=== PATIENT | female | born 1940 | race African-American/Black ===

== ENCOUNTER 2018-05-01 05:44 | Day surgery (SDC) | payer MEDICARE, MEDICAID ==
--- NOTE | 2018-04-26 15:14 | Pre-Procedure Note/Attestation ---
Pre-Procedure Note/Attestation Complete Prior to Procedure Planned Procedure: right Procedure Narrative: phaco with IOL Indications for Procedure Pre-Operative Diagnosis: cataract Attestation I attest that I discussed the nature of the procedure; its benefits; risks and complications; and alternatives (and the risks and benefits of such alternatives ), prior to the procedure, with the patient (or the patient's legal business services representative). I attest that, if there was a reasonable possibility of needing a blood transfusion, the patient (or the patient's legal business services representative) was given the [facility] standardized written summary, pursuant to the [place] Blood Safety Act ([place] Health and Safety Code # 1645, as amended). I attest that I re-evaluated the patient just prior to the surgery and that there has been no change in the patient's H&P, except as documented below: Rajeev Hernandez MD Apr 26, 2018 15:14
--- NOTE | 2018-04-26 15:18 | Opthalmology H&P ---
Ophthalmology H&P H&P Chief Complaint: decreased vision in right eye HPI Vision Affects Ability to: read, focus/use eyes together, manage personal affairs HPI Narrative blurry vision Exam Visual Acuity: OD: 20/80 OS: 20/125 Tension: OD: 13 OS: 15 Eye Exam: normal OU: external exam, palpebral fissure-width, marginal reflex distance, levator function, corneas, anterior chambers; findings: lens - OD; ns OS: ns, fundus exam - HTN retinopathy OU Assessment/Plan Diagnosis: (1) Nuclear age-related cataract, right eye Treatment Plan: cataract extraction w/ lens implant Goals of Treatment: improvement of vision, enhance quality of life Attestation Attestation The risks and benefits of the surgery as well as alternative procedures were explained to the patient in detail. Rajeev Hernandez MD Apr 26, 2018 15:18
[~2018-05-01] VITALS: Ht 162.6 cm; Wt 86.2 kg
[2018-05-01] VITALS (7 sets, daily range): BP systolic 147–187; BP diastolic 72–112
[2018-05-01] MEDS: Phenylephrine 10% Opth Soln 5ml RIGHT EYE SCH ×3 (06:50→07:12)
[2018-05-01] MEDS: Cyclopentolate 1% Opth Sol 2ml RIGHT EYE SCH ×3 (06:50→07:12)
[2018-05-01] MEDS: Tropicamide 1% Opth 15ml Soln RIGHT EYE SCH ×3 (06:50→07:12)
[2018-05-01] MEDS: Tobramycin Op Soln 0.3% 5ml RIGHT EYE SCH ×3 (06:52→07:12)
[2018-05-01] MEDS: Diclofenac Sod 0.1% Op Soln RIGHT EYE SCH ×2 (06:52→07:05)
[2018-05-01] MEDS ORDERED: Proparacaine 0.5% Opth Soln 15ml RIGHT EYE ONE (07:00)
[2018-05-01] MEDS ORDERED: Akten 3.5% 1ml Btl RIGHT EYE ONE (07:00)
[2018-05-01] MEDS ORDERED: Tetracaine 0.5% Opth 4ml Soln RIGHT EYE ONE (07:00)
[2018-05-01] MEDS ORDERED: Lidocaine 4% Amp ONE (07:09)
[2018-05-01] MEDS ORDERED: EPINEPHrine 1mg/1ml Amp ONE (07:09)
[2018-05-01] MEDS ORDERED: Sodium Hyaluronate 14 mg/ml 0.85ml ONE (07:10)
[2018-05-01] MEDS ORDERED: BSS 500ml btl ONE (07:10)
[2018-05-01] MEDS ORDERED: BSS 15ml BTL ONE (07:10)
[2018-05-01] MEDS ORDERED: Povidone-Iodine 5% opth solution ONE (07:11)
[2018-05-01] MEDS ORDERED: Lidocaine 2% MPF 5ml Vial INJ ONE (07:11)
[2018-05-01] MEDS ORDERED: POTASSIUM CHLO10 ME3 ORAL (07:11)
[2018-05-01] MEDS ORDERED: Bupivacaine 0.75% 30ml vial INJ ONE (07:12)
[2018-05-01] MEDS ORDERED: ATORVASTATIN CA20 MG ORAL (07:15)
[2018-05-01] MEDS ORDERED: ASPIR 8181 MG ORAL (07:15)
[2018-05-01] MEDS ORDERED: LEVOCETIRIZINE D5 MG ORAL (07:16)
[2018-05-01] MEDS ORDERED: METOPROLOL TART50 M1 ORAL (07:16)
[2018-05-01] MEDS ORDERED: MYBETRIC (07:19)
[2018-05-01] MEDS ORDERED: MYBETRIC PO (07:19)
[2018-05-01] MEDS ORDERED: LR 1000ml 1,000 ML IVLG SCH (08:09)
[2018-05-01] MEDS ORDERED: oxyCODONE HCL/Acetaminophen 5/325mg ORAL PRN (08:15)
[2018-05-01] MEDS ORDERED: LORazepam Inj 2mg/ml 1ml IV PRN (08:15)
[2018-05-01] MEDS ORDERED: fentaNYL 100 mcg/2 mL IV PRN (08:15)
[2018-05-01] MEDS ORDERED: Norco 5mg/325mg tab ORAL PRN (08:15)
[2018-05-01] MEDS ORDERED: Hydromorphone 0.5mg/0.5ml inj IVP PRN (08:15)
[2018-05-01] MEDS ORDERED: Ketorolac 30mg Inj IV PRN ×2 (08:15)
[2018-05-01] MEDS ORDERED: Atropine Sulfate 0.4mg/ml inj IVP PRN (08:15)
[2018-05-01] MEDS ORDERED: Metoclopramide 10mg/2ml Inj IVP PRN (08:15)
[2018-05-01] MEDS ORDERED: Meperidine 50mg/ml Inj(FOR RIGORS ONLY) IVP PRN (08:15)
[2018-05-01] MEDS ORDERED: DiphenhydrAMINE 50mg/ml Inj IVP PRN (08:15)
[2018-05-01] MEDS ORDERED: Midazolam 2mg/2ml Inj IVP PRN (08:15)
[2018-05-01] MEDS ORDERED: HYDROcodone/Acetamin 7.5/325 tab ORAL PRN (08:15)
--- NOTE | 2018-05-01 08:23 | Anethesia Preoperative Eval ---
Anesthesia Pre-op PMH/ROS General Date of Evaluation: May 01, 2018 Time of Evaluation: 08:42 Anesthesiologist: Lidia ASA Score: ASA 3 Mallampati Score Class I : Soft palate, uvula, fauces, pillars visible Class II: Soft palate, uvula, fauces visible Class III: Soft palate, base of uvula visible Class IV: Only hard plate visible Mallampati Classification: Class III Surgeon: Mary Diagnosis: Cataract OD Surgical Procedure: Cat Ext IOL OD Anesthesia History: none Family History: no anesthesia problems Allergies: Coded Allergies: No Known Allergies (Unverified , 04/26/18) Medications: see eMAR Patient NPO?: Yes Past Medical History Cardiovascular: Reports: HTN, CAD - Stent, other - HL Gastrointestinal/Genitourinary: Reports: GERD HEENT: Reports: cataract (L), cataract (R), glaucoma Musculoskeletal/Integumentary: Reports: other - Back Pain Other: obesity - BMI 34 PSxH Narrative: Cardiac Stent Anesthesia Pre-op Phys. Exam Physician Exam Last Vital Signs Date Time Temp Pulse Resp B/P (MAP) Pulse Ox O2 Delivery O2 Flow Rate FiO2 05/01/18 07:06 Room Air 05/01/18 06:47 98.8 58 18 164/72 99 Constitutional: NAD Neurologic: CN 2-12 intact Cardiovascular: RRR Respiratory: CTA Gastrointestinal: S/NT/ND Airway Exam Mallampati Score: Class III MO: limited ROM: limited Teeth: missing Anesthesia Pre-op A/P Risk Assessment & Plan Assessment: ASA 3 Plan: GA Status Change Before Surgery: No Norman Murillo MD May 01, 2018 08:23
--- NOTE | 2018-05-01 08:58 | Immediate Post-Op Evaluation ---
Immediate Post-Op Evalulation Immediate Post-Op Evalulation Procedure: Cat Ext IOL OD Date of Evaluation: May 01, 2018 Time of Evaluation: 09:49 IV Fluids: 400 LR Blood Products: 0 Estimated Blood Loss: 1 Urinary Output: 0 Blood Pressure Systolic: 171 Blood Pressure Diastolic: 107 Pulse Rate: 56 Respiratory Rate: 16 O2 Sat by Pulse Oximetry: 94 Temperature (Fahrenheit): 98.5 Pain Score (1-10): 1 Nausea: No Vomiting: No Complications 0 Patient Status: awake, reacts, patent, none Hydration Status: adequate Norman Murillo MD May 01, 2018 08:58
--- NOTE | 2018-05-01 08:59 | 48 Hour Post Anesthesia Eval ---
Post Anesthesia Evaluation Procedure: Cat Ext IOL OD Date of Evaluation: May 01, 2018 Time of Evaluation: 11:52 Blood Pressure Systolic: 165 0: 89 Pulse Rate: 56 Respiratory Rate: 18 Temperature (Fahrenheit): 98.6 O2 Sat by Pulse Oximetry: 93 Airway: patent Nausea: No Vomiting: No Pain Intensity: 1 Hydration Status: adequate Cardiopulmonary Status: Stable Mental Status/LOC: patient returned to baseline Follow-up Care/Observations: 0 Post-Anesthesia Complications: 0 Follow-up care needed: ready to discharge Norman Murillo MD May 01, 2018 08:59
[2018-05-01] MEDS ORDERED: Propofol 200mg/20ml IV ONE (09:00)
[2018-05-01] MEDS ORDERED: Lidocaine 1% MPF 10mg/ml 5ml ONE (09:00)
[2018-05-01] MEDS ORDERED: Tetracaine 0.5% Opth 4ml Soln ONE (09:00)
[2018-05-01] MEDS ORDERED: Pred Forte 1% Opth Susp 1ml ONE (09:00)
[2018-05-01] MEDS ORDERED: LR 1000ml ONE (09:00)
[2018-05-01] MEDS ORDERED: Dexamethasone 4mg/ml vial ONE (09:00)
[2018-05-01] MEDS ORDERED: Pilocarpine 2% Opth 15ml Soln ONE (09:00)
[2018-05-01] MEDS ORDERED: Maxitrol Opth Oint 3.5gm ONE (09:00)
[2018-05-01] MEDS ORDERED: vit D PO (13:24)
[2018-05-01] MEDS ORDERED: OMEPRAZOLE20 M2 ORAL (13:25)
[2018-05-01] MEDS ORDERED: ANORO ELLIPTA1 EACH INH (13:27)
[2018-05-01] MEDS ORDERED: PROLENSA1.6 ML OP (13:28)
[2018-05-01] MEDS ORDERED: LOTEMAX3.5 GM OP (13:29)
[2018-05-01] MEDS ORDERED: VENTOLIN HFA18 GM INH (13:30)
--- NOTE | 2018-05-02 20:09 | Brief Operative Note ---
Immediate Post Operative Note Operative Note Chief Complaint: blurry vision Pre-op Diagnosis: cataract, OD Procedure: phaco with IOL Post-op Diagnosis: pseudophakia Post-op Diagnosis: same as pre-op Findings: consistent w/pre-op dx studies Surgeon: Mary Anesthesiologist: Laner Anesthesia: MAC Specimen: none Complications: none Condition: stable Fluids: LR Estimated Blood Loss: none Drains: none Implant(s) used?: Yes Rajeev Hernandez MD May 02, 2018 20:09
--- NOTE | 2018-05-02 20:10 | Operative Note - PDOC ---
Operative Note Operative Note Date of Operation/Procedure: May 01, 2018 Chief Complaint: blurry vision Pre-op Diagnosis: cataract, OD Procedure: phaco with IOL Post-op Diagnosis: pseudophakia Post-op Diagnosis: same as pre-op Operative Findings: consistent w/pre-op dx studies Surgeon: Mary Anesthesiologist: Lanre Anesthesia: MAC Specimen: none Complications: none Condition: stable Fluids: LR Estimated Blood Loss: none Drains: none Implant(s) used?: Yes Indications for Procedure cataract Description of Procedure This patient has been complaining visually significant cataract in the affected eye with the best corrected visual acuity under moderate glare conditions worse. The patient complains of difficulties with glare in performing activities of daily living and wants to manage personal affairs with comfort and accuracy and see well enough to move with safety at home and outdoors. ~~~ The risks, benefits and alternatives of the procedure were discussed with the patient in the office prior to scheduling surgery. All questions from the patient were answered after the surgical procedure was explained in detail. The risks of the procedure as explained to the patient include, but are not limited to, pain, infection, bleeding, loss of vision, retinal detachment, need for further surgery, loss of lens nucleus, double vision, etc. Alternative procedures were discussed which include, to do nothing or seek a second opinion. Informed consent for this procedure was obtained from the patient. The patient was referred to a primary care physician for a cardiopulmonary clearance prior to surgery, after proper evaluation was done patient was properly scheduled for outpatient surgery. The patient was brought to the operating room where the anesthesiologist established I.V. lines and cardiac monitoring leads. Mild intravenous sedation was administered. Using a solution containing 0.75% Marcaine and 2% lidocaine with Wyd[place], a peribulbar block was administered to the eye. ~The patient was then prepared with a 5% solution of povidone-iodine to the conjunctival fornix and lashes, and a 10% solution of povidone-iodine to the lids and periorbital skin. The patient was then draped in the usual sterile fashion. A lid speculum was then placed in the operative eye. A keratome blade was then used to create a biplanar incision into the anterior chamber. Viscoelastics was then instilled into the anterior chamber. A capsulorrhexis was then fashioned with an utrata forceps. BSS and a cannula were then used to hydrodissect and hydro delineate the lens. Paracentesis incision was made at 3 o'clock with sharp blade. The phacoemulsification unit, after being properly adjusted ~and tested, was then used to emulsify the nucleus followed by aspirated of residual cortical material with the irrigation and aspiration unit. Healon was then instilled into the anterior chamber. The corneal wound was then enlarged to the size of the optic with the smooth keratome blade. The intraocular lens was then inspected for right ~ power and size and thought to be satisfactory. Then the lens was gently placed in the capsular bag. Positioning within the capsular bag was confirmed by direct visualization. Optic centration was accomplished with a Sinskey hook. Viscoelastics ~was removed from the anterior chamber using the irrigation and aspiration unit. The corneal wound was then tested for leaks and none were found. The lid speculum were then removed. Sponge and needle counts were correct. An eye patch and shield were placed over the operative eye. The patient was taken to the recovery room in stable condition. There were no complications. The patient tolerated the procedure well. The patient was then transferred to the ambulatory surgery unit in stable and satisfactory condition , was given detailed written instructions and asked to follow up ~in the office the next day. Rajeev Hernandez MD May 02, 2018 20:10
== END 2018-05-01 11:15 | disposition home or self-care (01) ==
LOC: SUR 05:44
DX: H25.11 Age-related nuclear cataract, right eye (principal); I10 Essential (primary) hypertension; E78.00 Pure hypercholesterolemia, unspecified; J44.9 Chronic obstructive pulmonary disease, unspecified; I11.9 Hypertensive heart disease without heart failure; K21.9 Gastro-esophageal reflux disease without esophagitis; Z95.5 Presence of coronary angioplasty implant and graft
CPT/HCPCS: 66984; J0171; J1100; J1885; J2704; J3370; V2632; 94003; 94150

== ENCOUNTER 2019-02-19 07:11 | Day surgery (SDC) | payer MEDICARE, MEDICAID ==
--- NOTE | 2019-02-16 13:00 | Opthalmology H&P ---
Ophthalmology H&P H&P Chief Complaint: decreased vision in left eye HPI Vision Affects Ability to: read, manage personal affairs HPI Narrative Blurry vision Exam Visual Acuity: OD 20/30 OS 20/50 Tension: OD 17 OS 16 Eye Exam: normal OU: external exam, palpebral fissure-width, marginal reflex distance, levator function, corneas, anterior chambers, lens - Cataract NS OS, Pseudo OD , fundus exam; findings: lens - Cataract NS OS,Pseudo OD Assessment/Plan Treatment Plan: cataract extraction w/ lens implant Goals of Treatment: improvement of vision, enhance quality of life Attestation Attestation The risks and benefits of the surgery as well as alternative procedures were explained to the patient in detail. Rajeev Hernandez MD Feb 16, 2019 13:00
--- NOTE | 2019-02-16 13:01 | Pre-Procedure Note/Attestation ---
Pre-Procedure Note/Attestation Complete Prior to Procedure Planned Procedure: left Procedure Narrative: Cataract extraction with intraocular lens implant left eye Indications for Procedure Pre-Operative Diagnosis: Nuclear sclerotic cataract left eye Attestation I attest that I discussed the nature of the procedure; its benefits; risks and complications; and alternatives (and the risks and benefits of such alternatives ), prior to the procedure, with the patient (or the patient's legal apprenticeship training representative). I attest that, if there was a reasonable possibility of needing a blood transfusion, the patient (or the patient's legal apprenticeship training representative) was given the [facility] standardized written summary, pursuant to the [place] Blood Safety Act ([place] Health and Safety Code # 1645, as amended). I attest that I re-evaluated the patient just prior to the surgery and that there has been no change in the patient's H&P, except as documented below: Rajeev Hernandez MD Feb 16, 2019 13:01
[~2019-02-19] VITALS: Ht 162.6 cm; Wt 83.9 kg
[2019-02-19] VITALS (8 sets, daily range): BP systolic 131–148; BP diastolic 72–100
[~2019-02-19 07:11] MED LIST: ANORO ELLIPTA1 EACH INH; ASPIR 8181 MG ORAL; ATORVASTATIN CA20 MG ORAL; Akten 3.5% 1ml Btl LEFT EYE ONE; Diclofenac Sod 0.1% Op Soln LEFT EYE SCH; LEVOCETIRIZINE D5 MG ORAL; LOTEMAX3.5 GM OP; METOPROLOL TART50 M1 ORAL; MYBETRIC; MYBETRIC PO; OMEPRAZOLE20 M2 ORAL; POTASSIUM CHLO10 ME3 ORAL; PROLENSA1.6 ML OP; Proparacaine 0.5% Opth Soln 15ml LEFT EYE ONE; Tetracaine 0.5% Opth 4ml Soln LEFT EYE ONE; Tobramycin Op Soln 0.3% 5ml LEFT EYE SCH; VENTOLIN HFA18 GM INH; vit D PO
[2019-02-19] MEDS: Cyclopentolate 1% Opth Sol 2ml LEFT EYE SCH ×3 (10:07→10:40)
[2019-02-19] MEDS: Tropicamide 1% Opth 15ml Soln LEFT EYE SCH ×3 (10:08→10:40)
[2019-02-19] MEDS: Phenylephrine 10% Opth Soln 5ml LEFT EYE SCH ×3 (10:10→10:40)
[2019-02-19] MEDS: Tobramycin Op Soln 0.3% 5ml LEFT EYE SCH ×3 (10:10→10:40)
[2019-02-19] MEDS ORDERED: BSS 500ml btl ONE (10:37)
[2019-02-19] MEDS ORDERED: Povidone-Iodine 5% opth solution ONE (10:37)
[2019-02-19] MEDS ORDERED: Polysporin Opth Oint 3.5gm ONE (10:37)
[2019-02-19] MEDS ORDERED: EPINEPHrine 1mg/1ml Amp ONE (10:37)
[2019-02-19] MEDS ORDERED: BSS 15ml BTL ONE (10:37)
[2019-02-19] MEDS ORDERED: Sodium Hyaluronate 14 mg/ml 0.85ml ONE (10:37)
--- NOTE | 2019-02-19 10:48 | Anethesia Preoperative Eval ---
Anesthesia Pre-op PMH/ROS General Date of Evaluation: Feb 19, 2019 Time of Evaluation: 11:09 Anesthesiologist: Lidia ASA Score: ASA 3 Mallampati Score Class I : Soft palate, uvula, fauces, pillars visible Class II: Soft palate, uvula, fauces visible Class III: Soft palate, base of uvula visible Class IV: Only hard plate visible Mallampati Classification: Class III Surgeon: Mary Diagnosis: Cataract OS Surgical Procedure: Cat Ext IOL OS Anesthesia History: none Family History: no anesthesia problems Allergies: Coded Allergies: QUININE (Verified Allergy, Mild, 02/19/19) ringing of ears Medications: see eMAR Patient NPO?: Yes Past Medical History Cardiovascular: Reports: HTN, CAD - Stent Gastrointestinal/Genitourinary: Reports: GERD HEENT: Reports: cataract (L), cataract (R), glaucoma Musculoskeletal/Integumentary: Reports: OA PSxH Narrative: MADY Anesthesia Pre-op Phys. Exam Physician Exam Last Vital Signs Date Time Temp Pulse Resp B/P (MAP) Pulse Ox O2 Delivery O2 Flow Rate FiO2 02/19/19 10:11 Room Air 02/19/19 10:10 98.2 70 20 131/85 95 4 Constitutional: NAD Neurologic: CN 2-12 intact Cardiovascular: RRR Respiratory: CTA Gastrointestinal: S/NT/ND Airway Exam Mallampati Score: Class III MO: limited ROM: limited Teeth: missing, intact Anesthesia Pre-op A/P Risk Assessment & Plan Assessment: ASA 3 Plan: TIVA Status Change Before Surgery: No Norman Murillo MD Feb 19, 2019 10:48
--- NOTE | 2019-02-19 10:49 | 48 Hour Post Anesthesia Eval ---
Post Anesthesia Evaluation Procedure: Cat Ext IOL OS Date of Evaluation: Feb 19, 2019 Time of Evaluation: 17:51 Blood Pressure Systolic: 147 0: 87 Pulse Rate: 76 Respiratory Rate: 18 Temperature (Fahrenheit): 98 O2 Sat by Pulse Oximetry: 99 Airway: patent Nausea: No Vomiting: No Pain Intensity: 1 Hydration Status: adequate Cardiopulmonary Status: Stable Mental Status/LOC: patient returned to baseline Follow-up Care/Observations: 0 Post-Anesthesia Complications: 0 Follow-up care needed: ready to discharge Norman Murillo MD Feb 19, 2019 10:49
--- NOTE | 2019-02-19 10:49 | Immediate Post-Op Evaluation ---
Immediate Post-Op Evalulation Immediate Post-Op Evalulation Procedure: Cat Ext IOL OS Date of Evaluation: Feb 19, 2019 Time of Evaluation: 12:14 IV Fluids: 600 LR Blood Products: 0 Estimated Blood Loss: 1 Urinary Output: 0 Blood Pressure Systolic: 148 Blood Pressure Diastolic: 97 Pulse Rate: 69 Respiratory Rate: 16 O2 Sat by Pulse Oximetry: 94 Temperature (Fahrenheit): 98.8 Pain Score (1-10): 1 Nausea: No Vomiting: No Complications 0 Patient Status: awake, reacts, patent, none Hydration Status: adequate Norman Murillo MD Feb 19, 2019 10:49
[2019-02-19] MEDS ORDERED: LR 1000ml ONE (11:00)
[2019-02-19] MEDS ORDERED: Pilocarpine 1% Opth 15ml Soln ONE (11:00)
[2019-02-19] MEDS ORDERED: Sterile Water Irrig 1000ml IRRIG ONE (11:00)
[2019-02-19] MEDS ORDERED: Pred Forte 1% Opth Susp 1ml ONE (11:00)
[2019-02-19] MEDS ORDERED: Lidocaine 1% MPF 10mg/ml 5ml ONE (11:00)
[2019-02-19] MEDS ORDERED: NS Irrig 1000ml ONE (11:00)
[2019-02-19] MEDS ORDERED: Dexamethasone 4mg/ml vial ONE (11:00)
[2019-02-19] MEDS ORDERED: Propofol 200mg/20ml IV ONE (11:34)
[2019-02-20] MEDS ORDERED: Akten 3.5% 1ml Btl LEFT EYE ONE (07:00)
[2019-02-20] MEDS ORDERED: Tobramycin Op Soln 0.3% 5ml LEFT EYE SCH (07:00)
[2019-02-20] MEDS ORDERED: Tropicamide 1% Opth 15ml Soln LEFT EYE SCH (07:00)
[2019-02-20] MEDS ORDERED: Proparacaine 0.5% Opth Soln 15ml LEFT EYE ONE (07:00)
[2019-02-20] MEDS ORDERED: Cyclopentolate 1% Opth Sol 2ml LEFT EYE SCH (07:00)
[2019-02-20] MEDS ORDERED: Tetracaine 0.5% Opth 4ml Soln LEFT EYE ONE (07:00)
[2019-02-20] MEDS ORDERED: Diclofenac Sod 0.1% Op Soln LEFT EYE SCH (07:00)
[2019-02-20] MEDS ORDERED: Phenylephrine 10% Opth Soln 5ml LEFT EYE SCH (07:00)
--- NOTE | 2019-02-20 14:31 | Brief Operative Note ---
Immediate Post Operative Note Operative Note Chief Complaint: Blurry vision Pre-op Diagnosis: Nuclear sclerotic cataract left eye Procedure: Cataract extraction with IOL implant left eye Post-op Diagnosis: Pseudo OS Findings: consistent w/pre-op dx studies Surgeon: Rajeev Hernandez MD Anesthesiologist: Norman Murillo MD Anesthesia: MAC Specimen: none Complications: none Condition: stable Fluids: LR Estimated Blood Loss: none Drains: none Implant(s) used?: Yes - IOL OS Rajeev Hernandez MD Feb 20, 2019 14:31
--- NOTE | 2019-02-20 14:33 | Operative Note - PDOC ---
Operative Note Operative Note Date of Operation/Procedure: Feb 19, 2019 Chief Complaint: Blurry vision Pre-op Diagnosis: Nuclear sclerotic cataract left eye Procedure: Cataract extraction with IOL implant left eye Post-op Diagnosis: Pseudo OS Operative Findings: consistent w/pre-op dx studies Surgeon: Rajeev Hernandez MD Anesthesiologist: Norman Murillo MD Anesthesia: MAC Specimen: none Complications: none Condition: stable Fluids: LR Estimated Blood Loss: none Drains: none Implant(s) used?: Yes - IOL OS Indications for Procedure Nuclear sclerotic cataract left eye Description of Procedure This patient has been complaining visually significant cataract in the left eye with the best corrected visual acuity of 20/50 and under moderate glare conditions worse. The patient complains of difficulties with glare in performing activities of daily living and wants to manage personal affairs with comfort and accuracy and see well enough to move with safety at home and outdoors. The risks, benefits and alternatives of the procedure were discussed with the patient in the office prior to scheduling surgery. All questions from the patient were answered after the surgical procedure was explained in detail. The risks of the procedure as explained to the patient include, but are not limited to, pain, infection, bleeding, loss of vision, retinal detachment, need for further surgery, loss of lens nucleus, double vision, etc. Alternative procedures were discussed which include, to do nothing or seek a second opinion. Informed consent for this procedure was obtained from the patient. The patient was referred to a primary care physician for a cardiopulmonary clearance prior to surgery, after proper evaluation was done patient was properly scheduled for outpatient surgery. The patient was brought to the operating room where the anesthesiologist established I.V. lines and cardiac monitoring leads. Mild intravenous sedation was administered. The patient was then prepared with a 5% solution of povidone -iodine to the conjunctival fornix and lashes, and a 5% solution of povidone- iodine to the lids and periorbital skin. The patient was then draped in the usual sterile fashion. A lid speculum was then placed in the operative eye. A keratome blade was then used to create a biplanar incision into the anterior chamber. Viscoelastics was then instilled into the anterior chamber. A capsulorrhexis was then fashioned with an utrata forceps followed by hydrodissection and hydro delineation of the lens nucleus. Paracentesis incision was made at 3 o'clock with sharp blade. The phacoemulsification unit, after being properly adjusted and tested, was then used to emulsify the nucleus followed by aspiration and irrigation of residual cortical material. Healon was then instilled into the anterior chamber. The corneal wound was then enlarged to the size of the optic with the smooth keratome blade. The intraocular lens was then inspected for right power and size and thought to be satisfactory. Then the lens was gently placed in the capsular bag. Positioning within the capsular bag was confirmed by direct visualization. Optic centration was accomplished with a Sinskey hook. Viscoelastics was removed from the anterior chamber using the irrigation and aspiration unit. The corneal wound was then tested for leaks and none were found. The lid speculum were then removed. Sponge and needle counts were correct. An eye patch and shield were placed over the operative eye. The patient was taken to the recovery room in stable condition. There were no complications. The patient tolerated the procedure well. The patient was then transferred to the ambulatory surgery unit in stable and satisfactory condition , was given detailed written instructions and asked to follow up in the office the next day. Rajeev Hernandez MD Feb 20, 2019 14:33
== END 2019-02-19 13:40 | disposition home or self-care (01) ==
LOC: SUR 07:11
DX: H25.12 Age-related nuclear cataract, left eye (principal); I11.9 Hypertensive heart disease without heart failure; I25.10 Atherosclerotic heart disease of native coronary artery without angina pectoris; K21.9 Gastro-esophageal reflux disease without esophagitis; M19.90 Unspecified osteoarthritis, unspecified site; Z95.5 Presence of coronary angioplasty implant and graft
CPT/HCPCS: 66984; J0171; J1100; J2704; J3370; V2632; 94003; 94150